=== PATIENT | male | born 1950 | race Caucasian/White ===

== ENCOUNTER 2018-07-17 11:50 | Observation (INO) | payer MEDICARE, BC ==
[~2018-07-17] VITALS: Ht 172.7 cm; Wt 95.6 kg
[~2018-07-17 11:50] MED LIST: FENTANYL PF 250 MCG/5ML ONE; MIDAZOLAM 1 MG/ML, 2ML ONE
[2018-07-17] MEDS ORDERED: DEXAMETHASONE 4 MG/ML, 1ML ONE (11:58)
[2018-07-17] MEDS ORDERED: ONDANSETRON 2MG/ML, 2ML ONE (11:58)
[2018-07-17] MEDS ORDERED: ROCURONIUM 10MG/ML,5ML ONE (11:58)
[2018-07-17] MEDS ORDERED: PROPOFOL 10 MG/ML, 20ML ONE (11:58)
[2018-07-17] MEDS ORDERED: GLYCOPYRROLATE 0.2MG/1ML, 5ML ONE (11:58)
[2018-07-17] MEDS ORDERED: CEFAZOLIN 1,000 MG ONE (11:58)
[2018-07-17] MEDS ORDERED: NEOSTIGMINE 1 MG/ML, 10ML ONE (11:58)
[2018-07-17] MEDS ORDERED: LACTATED RINGERS 1,000 ML IV SCH (12:37)
[2018-07-17] MEDS ORDERED: METO25TA35 PO (12:41)
[2018-07-17] MEDS ORDERED: TAMS0.4C2 PO (12:41)
[2018-07-17] MEDS ORDERED: ATOR40TA78 PO (12:41)
[2018-07-17] MEDS ORDERED: LISI-167 PO (12:41)
[2018-07-17] MEDS ORDERED: ASPI-496 PO (12:41)
[2018-07-17] MEDS ORDERED: FENTANYL PF 100 MCG/2ML IV PRN (13:00)
[2018-07-17] MEDS ORDERED: LABETALOL 5MG/ML, 20ML IV PRN (13:00)
[2018-07-17] MEDS ORDERED: PROMETHAZINE 25 MG SUPP PR PRN (13:00)
[2018-07-17] MEDS ORDERED: ONDANSETRON 2MG/ML, 2ML IV PRN ×2 (13:00→15:00)
[2018-07-17] MEDS ORDERED: OXYcodone 5 MG/5 ML ORAL.SOL UDC PO PRN (13:00)
[2018-07-17] MEDS ORDERED: MORPHINE SULFATE 4 MG/ML, 1ML IVPush PRN (13:00)
[2018-07-17] MEDS ORDERED: HYDROmorphone 2 MG/ML, 1ML IVPush PRN (13:00)
[2018-07-17] MEDS ORDERED: PROMETHAZINE 12.5 MG SUPP PR PRN (13:00)
[2018-07-17] MEDS ORDERED: ACETAMINOPHEN 325 MG TABLET PO PRN (13:00)
[2018-07-17] MEDS ORDERED: ONDANSETRON ODT 8 MG PO PRN (13:00)
[2018-07-17] MEDS ORDERED: PROMETHAZINE 25 MG/ML, 1ML IM PRN ×3 (13:00)
[2018-07-17] MEDS ORDERED: hydrALAzine 20 MG/ML, 1ML IV PRN (13:00)
[2018-07-17] MEDS ORDERED: MEPERIDINE/PF 25MG/0.5ML IVPush PRN (13:00)
[2018-07-17] MEDS ORDERED: CIPROFLOXACIN/PMX 400MG/200ML 200 ML ONE (13:04)
[2018-07-17 13:09] VITALS: BP 128/71
[2018-07-17] MEDS ORDERED: MITOMYCIN 40 MG in STERILE WATER 40 ML INTVESIC ONE (14:30)
[2018-07-17] MEDS ORDERED: OXYcodone/APAP 5/325MG TABLET PO PRN (15:00)
[2018-07-17] MEDS ORDERED: OPIUM/BELLADONNA SUPP.RECT 16.2-60 MG PR PRN (15:00)
[2018-07-17] MEDS ORDERED: PHENAZOPYRIDINE 200 MG TABLET ONE (15:14)
[2018-07-17] MEDS: PHENAZOPYRIDINE 200 MG TABLET PO PRN ×2 (15:15→20:07)
[2018-07-17 16:17] VITALS: BP 128/70
[2018-07-17] MEDS: METOPROLOL TARTRATE 25 MG TABLET PO SCH (18:14)
[2018-07-17] MEDS ORDERED: ATORVASTATIN 40 MG TABLET PO SCH (21:00)
[2018-07-17] MEDS ORDERED: TAMSULOSIN 0.4 MG CAP.ER.24H PO SCH (21:00)
[2018-07-17] MEDS ORDERED: LISINOPRIL 10 MG TABLET PO SCH (21:00)
[2018-07-17 21:44] VITALS: BP 121/74
[2018-07-18 03:32] VITALS: BP 119/65
[2018-07-18] MEDS: METOPROLOL TARTRATE 25 MG TABLET PO SCH (05:18)
[2018-07-18 09:50] VITALS: BP 140/70
[2018-07-18] MEDS ORDERED: PHEN-583 PO (10:55)
[2018-07-18] MEDS ORDERED: OXYB5TAB7 PO (10:56)
== END 2018-07-18 11:55 | disposition home or self-care (01) ==
LOC: OUT 11:50 → ORIP 14:32 → 4NOR 15:58 → DCLOUNGE 07-18 11:29
PROVIDERS: ADMIT Urology; ATTEND Urology
DX: N21.0 Calculus in bladder (principal)
CPT/HCPCS: 52318; 82360; 88300; 88305; G0378; J0690; J0744; J1100; J2250; J2405; J2704; J2710; J3010; J3490; J7120; J9280

== ENCOUNTER 2018-07-22 10:30 | Inpatient (IN) | payer MEDICARE, BC ==
[~2018-07-22] VITALS: Ht 172.7 cm; Wt 102.4 kg
[~2018-07-22 10:30] MED LIST changes: +ASPI-496 PO; +ATOR40TA78 PO; -FENTANYL PF 250 MCG/5ML ONE; +LISI-167 PO; +METO25TA35 PO; -MIDAZOLAM 1 MG/ML, 2ML ONE; +OXYB5TAB7 PO; +PHEN-583 PO; +TAMS0.4C2 PO
--- NOTE | 2018-07-22 11:22 | NUR ---
PT AMBULATORY WITH STEADY GAIT TO ROOM FROM [facility]
[2018-07-22] MEDS ORDERED: SODIUM CHLORIDE FLUSH 10ML SYR IVF ONE (11:30)
[2018-07-22] MEDS ORDERED: SODIUM CHLORIDE 0.9% 1,000ML IVBOLUS ONE (11:30)
[2018-07-22] MEDS ORDERED: FAMOTIDINE 20 MG/2 ML IVP ONE (11:30)
[2018-07-22] MEDS ORDERED: ONDANSETRON 2MG/ML, 2ML IVPush ONE (11:30)
--- NOTE | 2018-07-22 11:30 | NUR ---
68 Y/O MALE PRESENTS TO ED WITH C/O "I WASN'T RECOVERING FROM SURGERY. I'VE BEEN THROWING UP POWERFULLY THIS MORNING. I HAD SOME BLADDER SURGERY, THERE WAS A LARGE STONE. MY URINE IS JUST DRIPPING, THERE IS NO STREAM. I WAS TRYING TO CALL AND KEPT GETTING ALL CIRCUITS ARE BUSY. I LEFT A MESSAGE." PT PLACED ON CONT PULSE OX,NIBP. NO C/O D, TRAUMA, SYNCOPE, CP, SOB.
[2018-07-22] MEDS ORDERED: ONDANSETRON 2MG/ML, 2ML ONE (11:39)
[2018-07-22] MEDS ORDERED: FAMOTIDINE 20 MG/2 ML ONE (11:39)
[2018-07-22 11:42] LABS: MEAN CORPUSCULAR HEMOGLOBIN 32.2 pg (27.5-34.5); MEAN CORPUSCULAR HGB CONC 33.8 g/dL (33.2-36.2); MEAN CORPUSCULAR VOLUME 95.4 fL (81-97); MEAN PLATELET VOLUME 10.1 fL (7.4-10.4); PLATELET COUNT 151 x10^3/uL (130-400); RED BLOOD COUNT 4.53 x10^6/uL (4.38-5.82); RED CELL DISTRIBUTION WIDTH 13.2 % (9.4-14.8)
--- NOTE | 2018-07-22 11:50 | NUR ---
PIV ESTABLISHED. PT TOLERATED WITH NO COMPLICATIONS. MEDICATIONS ADMINISTERED PER EMAR. NO NEEDS REQUESTED AT THIS TIME.
[2018-07-22 11:51] LABS: ALANINE AMINOTRANSFERASE 38 U/L (12-78); ALBUMIN 3.7 g/dL (3.4-5.0); ANION GAP 14 mmol/L (5-15); CHLORIDE 110 mmol/L (98-107); CREATININE 8.79 mg/dL (0.7-1.3)
[2018-07-22 11:54] LABS: ALKALINE PHOSPHATASE 81 U/L (45-117); TOTAL PROTEIN 7.4 g/dL (6.4-8.2)
[2018-07-22 12:45] LABS: MD SCAN
[2018-07-22 12:46] LABS: BASOPHILS % (AUTO) 0 % (0-1); EOSINOPHILS # (AUTO) 0.02 x10^3/uL (0-0.4); EOSINOPHILS % (AUTO) 0 % (1-7); LYMPHOCYTES # (AUTO) 0.19 x10^3/uL (1-3.4); LYMPHOCYTES % (AUTO) 2 % (22-44); MONOCYTES # (AUTO) 0.18 x10^3/uL (0.2-0.8); MONOCYTES % (AUTO) 2 % (2-9); NEUTROPHILS # (AUTO) 10.91 x10^3/uL (1.8-6.8); NEUTROPHILS % (AUTO) 97 % (42-75)
--- NOTE | 2018-07-22 12:57 | NUR ---
pt back from imaging.
--- NOTE | 2018-07-22 13:01 | NUR ---
PT RESTING ON GURNEY. NO ACUTE DISTRESS NOTED. NO NEEDS REQUESTED AT THIS TIME. VSS.
[2018-07-22] MEDS ORDERED: hydrALAzine 20 MG/ML, 1ML IVPush PRN (14:30)
[2018-07-22] MEDS ORDERED: morphine SULFATE 10 MG/ML, 1ML IVPush PRN (14:30)
[2018-07-22] MEDS ORDERED: ONDANSETRON 2MG/ML, 2ML IVPush PRN (14:30)
--- NOTE | 2018-07-22 14:30 | NUR ---
Metzger catheter inserted, 900 immediate output bobo urine. UA collected & sent. Pt expresses relief of pressure in bladder. Has been seen by Dr. Stanley, nephrology
[2018-07-22 14:40] LABS: CULTURE INDICATED? YES; MICROSCOPIC INDICATED
--- NOTE | 2018-07-22 14:43 | NUR ---
PT RESTING ON GURNEY. NO ACUTE DISTRESS NOTED. NO NEEDS REQUESTED AT THIS TIME.
--- NOTE | 2018-07-22 15:29 | NUR ---
REPORT CALLED TO JONO HARPER. ALL QUESTIONS ANSWERED.
--- NOTE | 2018-07-22 16:06 | NUR ---
PT TRANSFERRED TO FLOOR. PT LEFT WITH ALL PERSONAL BELONGINGS.
[2018-07-22 16:25] VITALS: BP 113/62
[2018-07-22 18:20] VITALS: BP 93/45
[2018-07-22 18:47] VITALS: BP 97/56
[2018-07-22] MEDS ORDERED: SODIUM BICARBONATE 650 MG TABLET PO SCH (21:00)
[2018-07-22 21:39] VITALS: BP_SYST 103; BP_SYST 97; BP_DIAS 48; BP_DIAS 49
[2018-07-22] MEDS: ATORVASTATIN 40 MG TABLET PO SCH (21:47)
[2018-07-22] MEDS: TAMSULOSIN 0.4 MG CAP.ER.24H PO SCH (21:47)
[2018-07-22] MEDS: METOPROLOL TARTRATE 25 MG TABLET PO SCH (21:50)
[2018-07-22] MEDS: ACETAMINOPHEN 325 MG TABLET PO PRN (23:49)
[2018-07-23 01:50] VITALS: BP 95/58
[2018-07-23] MEDS: ACETAMINOPHEN 325 MG TABLET PO PRN ×3 (05:01→20:10)
[2018-07-23 05:13] VITALS: BP 115/58
[2018-07-23 05:35] LABS: BASOPHILS # (AUTO) 0.01 x10^3/uL (0-0.1); BASOPHILS % (AUTO) 0 % (0-1); EOSINOPHILS % (AUTO) 0 % (1-7); LYMPHOCYTES # (AUTO) 0.34 x10^3/uL (1-3.4); LYMPHOCYTES % (AUTO) 3 % (22-44); MD NO; MEAN CORPUSCULAR HEMOGLOBIN 32.7 pg (27.5-34.5); MEAN CORPUSCULAR HGB CONC 34.4 g/dL (33.2-36.2); MEAN CORPUSCULAR VOLUME 94.8 fL (81-97); MEAN PLATELET VOLUME 10.6 fL (7.4-10.4); MONOCYTES # (AUTO) 0.48 x10^3/uL (0.2-0.8); MONOCYTES % (AUTO) 4 % (2-9); NEUTROPHILS # (AUTO) 10.75 x10^3/uL (1.8-6.8); NEUTROPHILS % (AUTO) 93 % (42-75); PLATELET COUNT 130 x10^3/uL (130-400); RED BLOOD COUNT 4.22 x10^6/uL (4.38-5.82); RED CELL DISTRIBUTION WIDTH 13.4 % (9.4-14.8)
[2018-07-23 05:44] LABS: CHLORIDE 108 mmol/L (98-107)
[2018-07-23 05:50] LABS: ALANINE AMINOTRANSFERASE 35 U/L (12-78); ALBUMIN 3.3 g/dL (3.4-5.0); ALKALINE PHOSPHATASE 71 U/L (45-117); ANION GAP 11 mmol/L (5-15); CALCIUM 8.6 mg/dL (8.5-10.1); CREATININE 4.88 mg/dL (0.7-1.3)
[2018-07-23 07:14] VITALS: BP 118/55
[2018-07-23] MEDS: METOPROLOL TARTRATE 25 MG TABLET PO SCH ×2 (08:20→20:09)
[2018-07-23] MEDS ORDERED: LISINOPRIL 10 MG TABLET PO SCH (09:00)
[2018-07-23 14:00] VITALS: BP 101/62
[2018-07-23] MEDS: CEFTRIAXONE PMX 2GM/50ML 50 ML IV SCH (14:22)
[2018-07-23 19:32] VITALS: BP 102/48
[2018-07-23] MEDS: ATORVASTATIN 40 MG TABLET PO SCH (20:09)
[2018-07-23] MEDS: TAMSULOSIN 0.4 MG CAP.ER.24H PO SCH (20:09)
[2018-07-24 02:25] VITALS: BP 116/72
[2018-07-24 06:04] LABS: BASOPHILS # (AUTO) 0.03 x10^3/uL (0-0.1); BASOPHILS % (AUTO) 1 % (0-1); EOSINOPHILS # (AUTO) 0.03 x10^3/uL (0-0.4); EOSINOPHILS % (AUTO) 1 % (1-7); LYMPHOCYTES # (AUTO) 0.33 x10^3/uL (1-3.4); LYMPHOCYTES % (AUTO) 7 % (22-44); MD NO; MEAN CORPUSCULAR HEMOGLOBIN 32.5 pg (27.5-34.5); MEAN CORPUSCULAR HGB CONC 34.1 g/dL (33.2-36.2); MEAN CORPUSCULAR VOLUME 95.4 fL (81-97); MEAN PLATELET VOLUME 9.8 fL (7.4-10.4); MONOCYTES # (AUTO) 0.42 x10^3/uL (0.2-0.8); MONOCYTES % (AUTO) 9 % (2-9); NEUTROPHILS # (AUTO) 3.95 x10^3/uL (1.8-6.8); NEUTROPHILS % (AUTO) 83 % (42-75); PLATELET COUNT 118 x10^3/uL (130-400); RED BLOOD COUNT 3.98 x10^6/uL (4.38-5.82); RED CELL DISTRIBUTION WIDTH 13.2 % (9.4-14.8)
[2018-07-24 06:05] LABS: ALBUMIN 2.6 g/dL (3.4-5.0); ANION GAP 6 mmol/L (5-15); CALCIUM 7.9 mg/dL (8.5-10.1); CHLORIDE 109 mmol/L (98-107)
[2018-07-24 06:08] LABS: CREATININE 1.45 mg/dL (0.7-1.3)
[2018-07-24 06:43] VITALS: BP 117/66
[2018-07-24] MEDS: METOPROLOL TARTRATE 25 MG TABLET PO SCH ×2 (09:16→21:00)
[2018-07-24 13:14] VITALS: BP 124/70
[2018-07-24] MEDS: CEFTRIAXONE PMX 2GM/50ML 50 ML IV SCH (13:55)
[2018-07-24 19:30] VITALS: BP 108/64
[2018-07-24] MEDS: TAMSULOSIN 0.4 MG CAP.ER.24H PO SCH (21:56)
[2018-07-24] MEDS: ATORVASTATIN 40 MG TABLET PO SCH (21:56)
[2018-07-25 02:16] VITALS: BP 122/73
[2018-07-25 05:43] LABS: ANION GAP 6 mmol/L (5-15); CALCIUM 8.6 mg/dL (8.5-10.1); CHLORIDE 108 mmol/L (98-107); CREATININE 0.94 mg/dL (0.7-1.3)
[2018-07-25 08:28] VITALS: BP 114/63
[2018-07-25] MEDS ORDERED: CEFD300C37 PO (08:42)
[2018-07-25] MEDS: METOPROLOL TARTRATE 25 MG TABLET PO SCH (09:35)
== END 2018-07-25 11:00 | disposition home or self-care (01) | DRG 872 ==
LOC: ED 12:48 → EDIP 12:49 → ED 12:56 → 4NOR 16:07 → DCLOUNGE 07-25 10:35
PROVIDERS: ADMIT Hospitalist; ATTEND Internal Medicine
PROC: 0T9B70Z Drainage of Bladder with Drainage Device, Via Natural or Artificial Opening (ICD-10-PCS; principal; 2018-07-22)
DX: A41.9 Sepsis, unspecified organism (principal); N17.9 Acute kidney failure, unspecified; N13.8 Other obstructive and reflux uropathy; E87.2 Acidosis; N13.6 Pyonephrosis; N40.1 Benign prostatic hyperplasia with lower urinary tract symptoms; C67.9 Malignant neoplasm of bladder, unspecified; E11.65 Type 2 diabetes mellitus with hyperglycemia; E78.5 Hyperlipidemia, unspecified; E86.0 Dehydration; I10 Essential (primary) hypertension; I25.10 Atherosclerotic heart disease of native coronary artery without angina pectoris; K40.20 Bilateral inguinal hernia, without obstruction or gangrene, not specified as recurrent; K44.9 Diaphragmatic hernia without obstruction or gangrene; N32.0 Bladder-neck obstruction; N40.0 Benign prostatic hyperplasia without lower urinary tract symptoms; R32 Unspecified urinary incontinence; Z87.442 Personal history of urinary calculi; Z85.828 Personal history of other malignant neoplasm of skin; Z95.5 Presence of coronary angioplasty implant and graft; Z82.49 Family history of ischemic heart disease and other diseases of the circulatory system; Z80.0 Family history of malignant neoplasm of digestive organs; Z88.0 Allergy status to penicillin; Z88.8 Allergy status to other drugs, medicaments and biological substances; Z91.030 Bee allergy status
CPT/HCPCS: 36415; 74176; 80048; 80053; 80069; 81001; 83735; 84100; 85025; 87040; 87086; 93005; 96361; 96374; 96375; G0378; J0696; J2405; J3490; J7030